=== PATIENT | male | born 1985 | race Caucasian/White ===

== ENCOUNTER 2017-10-12 01:32 | Emergency (ER) | payer SELFPAY ==
[~2017-10-12] VITALS: Ht 177.8 cm; Wt 86.4 kg
[2017-10-12] MEDS ORDERED: PERTUSS(ACELL),DIPH,TET VAC/PF 0.5 ML VIAL IM ONE (01:45)
[2017-10-12] MEDS ORDERED: SODIUM CHLORIDE 0.9% 1,000 ML IV ONE (01:45)
[2017-10-12] MEDS ORDERED: CeFAZolin 1 GM/DEXTROSE 50 ML IV ONE (01:45)
[2017-10-12 01:51] VITALS: BP 122/77
== END 2017-10-12 01:52 | disposition short-term general hospital (02) ==
LOC: EMS 01:33
DX: S31.119A Laceration without foreign body of abdominal wall, unspecified quadrant without penetration into peritoneal cavity, initial encounter (principal); S51.812A Laceration without foreign body of left forearm, initial encounter; W26.9XXA Contact with unspecified sharp object(s), initial encounter; Y93.89 Activity, other specified; Y92.89 Other specified places as the place of occurrence of the external cause; Y99.8 Other external cause status
CPT/HCPCS: 71045; 90471; 90715; 96360; 96361; 96365; 96366; 99291; J0690; J7030